=== PATIENT | female | born 1945 | race Caucasian/White ===

== ENCOUNTER 2024-11-14 11:29 | Outpatient (REF) | payer MEDICARE, SELFPAY ==
--- OUTSIDE RECORDS SUMMARY | 2024-11-14 11:54 | XMS_ITS | Data Portability ---
Author Organization [place] - [facility], Allergy Address [address] [address] Care Team Providers Care Director Of Technology Name Role Phone LAWANDA CLAUDIO Primary Care Provider [phone] Assessment Encounter Date Assessment Date Assessment LastModified by Organization Details LastModified Time 06/10/2024 06/10/2024 audiometric testing today shows a mild to profound sensorineural hearing loss in the right ear with absent speech discrimination. Left ear shows a mild primarily low-frequency sensorineural hearing loss with normal speech discrimination. Overall unchanged since 2020. She remains a good candidate to consider amplification technology with BICROS through [employer] program rep or BAHA surgery which she is less interested in Possibly a single sided cochlear implant candidate if she is not tolerating the BICROS. None of the options will help with the tinnitus she is experiencing dplosky Not available 06/10/2024 15:27:56 Plan of Treatment Reminders Order Date Submit Date Provider Last Modified By Organization Details Last Modified Time Details Appointments None record ed. Lab None record ed. Referral None record ed. Procedures None record ed. Surgeries None record ed. Imaging None record ed. Medication Orders None record ed. Patient TargetsNo targets recorded. Patient InstructionsNo instructions recorded. Reason for Referral None Reported. Problems Name Problem SNOMED Code Status Onset Date Resolution Date Notes Provider Name and Address Organization Details Recorded Time Allergic rhinitis 32280371 Active 2014 Rhinitis, allergic; [facility] Treatment : new problem (to examiner) : no additiona l workup planned N ote: Date Diagnosed : 08/29/2014 12:19 PM (477.9) Not Available [facility] 02:14:23 Subjectiv e tinnitus 77433734 Active 2014 Tinnitus; CMS Treatment : establish ed problem (to examiner) : stable or improved Note: Date Diagnosed : 4 9:40 AM (388.31) Not Available [facility] 4 02:14:23 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 ? ?ni? ? ?re's disease 47463756 Active 2014 Meniere's Disease; Note: Date Diagnosed : 09/15/2014 1:43 PM (386.00) Not Available [facility] 4 02:12:40 Impacted cerumen in right ear 93854484176 36508 Active 2020 Impacted cerumen, right ear; Note: Date Diagnosed : 10/15/2020 11:02 AM (H61.21) Not Available [facility] 4 02:12:40 Migraine variants 308713139 Active 2014 Migraine variant; Note: Date Diagnosed : 10/14/2014 5:50 PM (346.20) Not Available [facility] 4 02:15:47 General unsteadin ess 867056990 Active 2020 Unsteadin ess on feet; Note: Date Diagnosed : 10/15/2020 11:55 AM (R26.81) Not Available [facility] 4 02:13:12 Sudden hearing loss 14128684 Active 2013 Sudden hearing loss, unspecifi ed; CMS Risk: moderate risk CMS Treatment : new problem (to examiner) : additiona l workup planned N ote: Date Diagnosed : 4 10:04 AM (388.2) Not Available [facility] 4 02:15:24 Sensorine ural hearing loss of bilateral ears 962301256 Active 2015 Sensorine ural hearing loss, bilateral ; Note: Date Diagnosed : 08/20/2015 4:14 PM (H90.3) Not Available [facility] 4 02:15:05 Dizziness and giddiness 260085031 Active 2013 Dizziness ; Note: Date Diagnosed : 4 9:40 AM (780.4) Not Available [facility] 4 02:15:05 Tinnitus of right ear 21157983242 08 Active 2015 Tinnitus, right ear; Note: Date Diagnosed : 08/20/2015 4:14 PM (H93.11) Not Available [facility] 4 02:14:44 Asymmetri obdulia sensorine ural hearing loss 422522537 Active 2013 Sensorine ural hearing los asymmetri c; CMS Risk: low risk CMS Treatment : establish ed problem (to examiner) : stable or improved Note: Date Diagnosed : 4 10:04 AM (389.16) Sensori neural HL, asymmetri c; CMS Risk: low risk CMS Treatment : establish ed problem (to examiner) : stable or improved Note: Date Diagnosed : 4 9:40 AM (389.16) Sensori neural hearing los asymmetri c; CMS Risk: low risk CMS Treatment : establish ed problem (to examiner) : stable or improved Note: Date Diagnosed : 4 10:04 AM (389.16) ; Start Date : 4 Sensori neural HL, asymmetri c; CMS Risk: low risk CMS Treatment : establish ed problem (to examiner) : stable or improved Note: Date Diagnosed : 4 9:40 AM (389.16) ; Start Date : 4 Sensori neural hearing los asymmetri c; CMS Risk: moderate risk CMS Treatment : new problem (to examiner) : additiona l workup planned N ote: Date Diagnosed : 4 10:04 AM (389.16) ; Start Date : 4 Sensori neural HL, asymmetri c; CMS Risk: moderate risk CMS Treatment : new problem (to examiner) : additiona l workup planned N ote: Date Diagnosed : 4 9:40 AM (389.16) ; Start Date : 4 Not Available [facility] 4 02:13:00 Bilateral tinnitus 60046202630 02 Active 2023 LUIGI CORTES MD [address] [place] [address], [facility] [place], [address] , [place] - [facility] 12:20:30 Problem Notes None recorded. Procedures Surgical History Date Name Laterality Status Provider Name and Address Organization Details Recorded Time 06/10/2024 Air & Speech Audio with Tymps - 54066, 25239 & 04754 completed Leandra Dickson [place] - [facility] 06/10/2024 14:55:16 Imaging Results None recorded. Procedure Notes None recorded. Medical Equipment None Reported. Allergies No known drug allergies Medications Name Sig Start Date Stop Date Status Note LastModified by Organization Details LastModified Time losartan 50 mg tablet active Medicati on ID: [id number] B rand Name: losartan Send Method: E-Prescr ibed Sub s Allowed: subs OK Medic ationGen ericName : losartan Not Available Not Available Not Available atorvasta tin 40 mg tablet 06/10 completed Medicati on ID: [id number] B rand Name: atorvast atin Sen d Method: E-Prescr ibed Sub s Allowed: subs OK Medic ationGen ericName : atorvast atin Not Available Not Available Not Available metformin 500 mg tablet TAKE 1 TABLET BY MOUTH TWICE A DAY WITH FOOD active Not Available Not Available No t Available atorvasta tin 80 mg tablet TAKE 1 TABLET BY MOUTH EVERYDAY AT BEDTIME active Not Available Not Available No t Available prednison e 10 mg tablet 09/15 completed Medicati on ID: [id number] Pr escribed By Name: Nancy Garcia nd Name: predniso ne Send Method: E-Prescr ibed Sub s Allowed: subs OK Speci al Instruct ion: As directed Medicat ionGener icName: predniso ne Not Available Not Available Not Available venlafaxi ne ER 75 mg capsule,e xtended release 24 hr TAKE 1 CAPSULE BY MOUTH DAILY FOR 180 DAYS. active Not Available Not Available No t Available atorvasta tin 20 mg tablet 10/15 completed Medicati on ID: [id number] Du ration Value: 30 Brand Name: atorvast atin Sen d Method: E-Prescr ibed Sub s Allowed: subs OK Speci al Instruct ion: TAKE 1 TABLET BY MOUTH EVERY DAY Medi cationGe nericNam e: atorvast atin Not Available Not Available Not Available polyethyl esther glycol 3350 17 gram oral powder packet TAKE 17 G BY MOUTH 1 (ONE) TIME EACH DAY FOR 3 DAYS. DISSOLVE IN WATER/JU ICE FIRST 06/10 completed Not Available Not Available Not Available sucralfat e 100 mg/mL oral suspensio n TAKE 10 ML BY MOUTH 4 TIMES DAILY FOR 30 DAYS. active Not Available Not Available No t Available promethaz ine 12.5 mg tablet 10/15 completed Medicati on ID: [id number] Du ration Value: 5 Brand Name: eliezer pantoja Sen d Method: E-Prescr ibed Sub s Allowed: subs OK Speci al Instruct ion: TAKE 1 TABLET BY MOUTH EVERY 6 HOURS NEEDED M hiroblake Josepheneric Name: eliezer pantoja Not Available Not Available Not Available FreeStyle Lancets 28 gauge USE ONCE DAILY DIRECTED active Not Available Not Available No t Available ondansetr on HCl 4 mg tablet 09/15 completed Medicati on ID: [id number] Du ration Value: 4 Reason: () Brand Name: ondanset michaela HCl Send Method: E-Prescr ibed Sub s Allowed: subs OK Speci al Instruct ion: TAKE 1-2 TABLETS BY MOUTH EVERY 8 HOURS NEEDED FOR NAUSEA. Medicati onGeneri cName: ondanset michaela HCl Not Available Not Available Not Available tramadol 50 mg tablet 10/15 completed Medicati on ID: [id number] Du ration Value: 4 Brand Name: tramadol Send Method: E-Prescr ibed Sub s Allowed: subs OK Speci al Instruct ion: TAKE 1 TABLET BY MOUTH EVERY 4 TO 6 HOURS NEEDED M massiel Ruizeneric Name: tramadol Not Available Not Available Not Available venlafaxi ne 100 mg tablet TAKE 1 TABLET BY MOUTH EVERY DAY FOR 90 DAYS active Not Available Not Available No t Available citalopra m 20 mg tablet 10/15 completed Medicati on ID: [id number] Du ration Value: 30 Brand Name: citalopr am Send Method: E-Prescr ibed Sub s Allowed: subs OK Speci al Instruct ion: TAKE 1 TABLET BY MOUTH EVERY DAY DIRECTED Medicat ionGener icName: citalopr am Not Available Not Available Not Available famotidin e 20 mg tablet TAKE 1 TABLET BY MOUTH TWICE DAILY FOR UPSET STOMACH active Not Available Not Available No t Available lorazepam 0.5 mg tablet active Medicati on ID: [id number] B rand Name: lorazepa m Send Method: E-Prescr ibed Sub s Allowed: subs OK Speci al Instruct ion: TAKE 1 TABLET BY MOUTH EVERY DAY NEEDED FOR ANXIETY OR INSOMNIA Medicat ionGener icName: lorazepa m Not Available Not Available Not Available meclizine 25 mg tablet 1 tablet by mouth 09/15 completed Medicati on ID: [id number] Pr escribed By Name: Nancy Garcia nd Name: meclizin e Send Method: E-Prescr ibed Sub s Allowed: subs OK Medic ationGen ericName : meclizin e Not Available Not Available Not Available diltiazem CD 300 mg capsule,e xtended release 24 hr 10/15 completed Medicati on ID: [id number] Du ration Value: 30 Brand Name: diltiaze m HCl Send Method: E-Prescr ibed Sub s Allowed: subs OK Speci al Instruct ion: TAKE ONE CAPSULE BY MOUTH EVERY DAY Medi cationGe nericNam e: diltiaze m HCl Not Available Not Available Not Available amlodipin e 10 mg tablet TAKE 1 TABLET BY MOUTH EVERY DAY FOR 180 DAYS active Not Available Not Available No t Available pantopraz ole 40 mg tablet,de layed release TAKE 1 TABLET BY MOUTH EVERY DAY BEFORE BREAKFAS T DO NOT CRUSH CHEW OR SPLIT active Not Available Not Available No t Available dexametha sone 4 mg tablet TAKE 1 TABLET BY MOUTH THREE TIMES A DAY 06/10 completed Not Available Not Available Not Available omeprazol e 20 mg capsule,d elayed release TAKE 1 CAPSULE BY MOUTH EVERY DAY active Not Available Not Available No t Available hydroxyzi ne HCl 25 mg tablet TAKE 1 TABLET BY MOUTH THREE TIMES A DAY NEEDED FOR HIVES active Not Available Not Available No t Available lorazepam 1 mg tablet 10/15 completed Medicati on ID: [id number] Du ration Value: 30 Brand Name: lorazepa m Send Method: E-Prescr ibed Sub s Allowed: subs OK Speci al Instruct ion: TAKE 1 TABLET BY MOUTH TWICE A DAY NEEDED M edicatio nGeneric Name: lorazepa m Not Available Not Available Not Available Dyazide 37.5 mg-25 mg capsule 1 capsule by mouth 10/14 completed Medicati on ID: [id number] Pr escribed By Name: Alfonso beltran M.D. Bra nd Name: Dyazide Send Method: E-Prescr ibed Sub s Allowed: subs OK Medic ationGen ericName : Dyazide Not Available Not Available Not Available ondansetr on 4 mg disintegr ating tablet TAKE 1 TABLET BY MOUTH EVERY 8 HOURS. active Not Available Not Available No t Available losartan 100 mg tablet TAKE 1 TABLET BY MOUTH EVERY DAY active Not Available Not Available No t Available fluticaso ne propionat e 50 mcg/actua tion nasal spray,amirah pension 10/15 completed Medicati on ID: [id number] Du ration Value: 30 Brand Name: fluticas one propiona te Send Method: E-Prescr ibed Sub s Allowed: subs OK Speci al Instruct ion: USE TWO PUFFS IN EACH NOSTRIL ONCE A DAY Medi cationGe nericNam e: fluticas one propiona te Not Available Not Available Not Available Vitamin D3 25 mcg (1,000 unit) tablet active Medicati on ID: [id number] B rand Name: Vitamin D3 Send Method: E-Prescr ibed Sub s Allowed: subs OK Medic ationGen ericName : Vitamin D3 Not Available Not Available Not Available FreeStyle Lite Meter kit USE ONCE DAILY DIRECTED active Not Available Not Available No t Available FreeStyle Lite Strips APPLY 1 STRIP TOPICALL Y 2 TIMES DAILY NEEDED FOR OTHER (..). active Not Available Not Available No t Available risedrona te 150 mg tablet 09/15 completed Medicati on ID: [id number] Du ration Value: 28 Reason: () Brand Name: risedron ate Send Method: E-Prescr ibed Sub s Allowed: subs OK Speci al Instruct ion: TAKE 1 TABLET BY MOUTH ONCE A MONTH Me dication GenericN ameena: risedron ate Not Available Not Available Not Available Fluzone High-Dose (PF) 180 mcg/0.5 mL intramusc ular syringe 09/15 completed Medicati on ID: [id number] Du ration Value: 1 Reason: () Brand Name: Fluzone High-Dos e (PF) Sen d Method: E-Prescr ibed Sub s Allowed: subs OK Speci al Instruct ion: TO BE ADMINIST ERED BY PHARMACI ST FOR IMMUNIZA TION Med icationG enericNa me: Fluzone High-Dos e (PF) Not Available Not Available Not Available OneTouch Delica Plus Lancet 30 gauge INJECT 1 UNITS INTO THE SKIN 2 TIMES DAILY NEEDED FOR OTHER. active Not Available Not Available No t Available Vitals Date Recorded Body height Body mass index (BMI) Body weight Provider Name and Address Organization Details Last Updated DateTime 06/10/2024 144.78 cm 25.1 kg/m2 51616.71 g Thais Molina [place] - [facility] 06/10/2024 15:05:13 Social History None recorded. Functional Status None recorded. Mental Status None recorded. Family History Nothing Reported. Medical History No medical history recorded. Gynecological HistoryNo gynecological history recorded. Obstetrics History GPAL:G 0 P 0 0 0 0 Past Encounters Encounter ID Performer Location Encounter Start Date Encounter Closed Date Diagnosis/Indication Diagnosis SNOMED-CT Code Diagnosis ICD10 Code Diagnosis Note [id number] LUIGI CORTES MD [facility] [address] [address] 06/10/2024 14:11:04 06/10/2024 15:27:53 Sensorineural hearing loss of bilateral ears 485419838 H90.3 Audiologic al evaluation results:Ri ght ear:Mild sloping to profound sensorineu ral hearing loss with no measurable word recognitio n.Left ear:Normal Normal through 2 kHz Mild M oderate Mo derately-s evere Pilar re Profoun d Essentai lly mild sloping to moderately severe sensorineu ral hearing loss with excellent word recognitio n. Tympanomet ry:Right Ear:Type ALeft Ear:Type A Bilateral tinnitus 19607 32406 102 H93.13 Health Concerns Section Related Observation LastModified by Organization Detai ls LastModified Time None Recorded Concern Status LastModified by Organization Details LastModified Time None Recorded Advance Directives Directive None Recorded Payers Insurance Date Sequence Insurance Name Policy Number Policy Bernardo Covered Member ID Bernardo Member ID Guarantor Name 06/10/2024 2 [facility] Liliya De Oliveira [id number] Liliya Alvino 09/19/2024 1 [facility] - DOS ON OR AFTER 2022 - SENIOR LIVING OPTIONS AND ONE CARE (MEDICARE REPLACEMENT/AD VANTAGE - PPO) Liliya De Oliveira [id number] Liliya De Oliveira Notes Date Note Type Note Provider Name and Address Organization Details Recorded Time 06/10/2024 text/html Lao translatingheamatthew Bradley has been seen in the past by doctors Demian Pacheco Mason (PV 10/15/20)right side tinnitus and hyperacusis, unchanged Fall 2013 profound, sudden SNHL in her right ear. Rx oral steroids with no change.05[facility]03[facility] w/wo con CDInormal, stable microvascular ischemic changes 08/2014 AudioLEFT - mild low-frequency SNHLRIGHT - moderate to profound SNHL with poor SDOffered BAHA vs BICROS PV 10/15/20 Renato - stable SNHL LUIGI CORTES MD [address] [place] [address], [phone], [place] - [facility] 06/10/2024 15:28:35 OBGyn Episode No OBEpisode recorded.
[2024-11-14 13:40] LABS: Vitamin B12 793 pg/mL (200-900)
== END 2024-11-14 11:30 | disposition home or self-care (01) ==
LOC: HO.LAB 11:29
PROVIDERS: PCP Internal Medicine; Visit Provider Psychiatry & Neurology Neurology
DX: G30.9 Alzheimer's disease, unspecified (principal)
CPT/HCPCS: 36415; 82607